=== PATIENT | male | born 1955 | race Caucasian/White ===

== ENCOUNTER → 2017-09-01 09:24 | Outpatient (CLI) | payer OTHER, SELFPAY ==
--- NOTE | 2017-09-01 | DI.MRI.S_ITS ---
PROCEDURE: MR LUMBAR SPINE WO CON INDICATIONS: LUMBAR PAIN TECHNIQUE: Noncontrast sagittal T1 spin echo and T2 fast echo, sagittal STIR, axial T1 and T2 fast spin echo through the lumbar spine. In cases with scoliosis, additional coronal T2 fast spin echo may be performed. COMPARISON: None. FINDINGS: Image quality: Excellent. Alignment and Curvature: There is normal bony alignment. Bone Marrow: Marrow is of normal overall signal. No acute vertebral body compression fractures. Spinal Cord: Conus medullaris terminates at the L1 level. Visualized cord demonstrates normal signal and size. Paraspinous Soft Tissues: No paravertebral masses. L1-L2: Minimal broad-based posterior disc bulge and bilateral facet arthropathy. No definite canal stenosis. No foraminal narrowing. L2-L3: Posterior annular fissure and broad-based posterior disc bulge. Superimposed minimal left paracentral protrusion. Bilateral facet arthropathy. Mild canal narrowing, left slightly greater than right. No foraminal stenosis. L3-L4: Bilateral facet arthropathy. Minimal canal narrowing mild left and no definite right foraminal stenoses. L4-L5: Posterior annular fissure and broad-based posterior disc bulge. Bilateral facet arthropathy. Prominent dorsal epidural lipomatosis. Moderate canal narrowing. Mild bilateral foraminal stenoses L5-S1: Mild broad-based posterior disc bulge and mild facet arthropathy. No definite canal stenosis. No foraminal narrowing. IMPRESSION: Multilevel lumbar disc degeneration and facet arthropathy. Mild L2-L3 and moderate L4-L5 canal narrowing as detailed above. Low-grade, bilateral foraminal stenoses as detailed above the spinal. Dictated by: Crescencio Thomson M.D. on 09/01/2017 at 10:30 Approved by: Crescencio Thomson M.D. on 09/01/2017 at 10:37
== END ==
PROVIDERS: PCP Internal Medicine; Visit Provider Orthopaedic Surgery Orthopaedic Surgery of the Spine
DX: M51.36 Other intervertebral disc degeneration, lumbar region (principal); M48.061 Spinal stenosis, lumbar region without neurogenic claudication; M47.816 Spondylosis without myelopathy or radiculopathy, lumbar region; M54.5 Low back pain
CPT/HCPCS: 72148

== ENCOUNTER → 2018-02-09 13:56 | Outpatient (CLI) | payer OTHER, SELFPAY ==
--- NOTE | 2018-02-09 | DI.ECHO.S_ITS ---
[place] [facility]---------+ [facility] +---------+ : : [address] : : : : [id number] : : : : Phone: [phone]+ Echocardiogram Report + + :Name: DC MANNING I Study Date: 02/09/2018 Height: 72 in : :[facility] Exam Location: [facility] Weight: 246 lb : : Gender: Male BSA: 2.3 m2 : :: 1955 Age: 62 yrs BP: 114/70 mmHg: :Reason For Study: AFIB : : Performed By: Andi Padilla : :Referring: JOSE DE JESUS RIOS : + + Interpretation Summary 1) Normal left ventricular thickness, size, wall motion, and systolic function (EF 60-65%). 2) Normal right ventricular size and function. 3) Both atria are moderately dilated. 4) No significant valvular abnormalities. 5) No prior Echo available for comparison. Procedure: A two-dimensional transthoracic echocardiogram with color flow and Doppler was performed. The study quality was technically good. There is no prior echocardiogram noted for this patient. The patient was in atrial fibrillation with rapid ventricular response during the exam with a heart rate exceeding 100 bpm. The patient had a heart rate of 89-134 beats per minute. Left Ventricle: The left ventricle is normal in size. There is normal left ventricular wall thickness. The ejection fraction is estimated to be 60-65%. Left ventricular systolic function is normal. There are no focal wall motion abnormalities. Right Ventricle: The right ventricle is normal in size and function. Atria: Both atria are moderately dilated. The interatrial septum is intact with no evidence for an atrial septal defect. Mitral Valve: The mitral valve is normal in structure and function. There is trace mitral regurgitation. Aortic Valve: The aortic valve is trileaflet. The aortic valve opens well. No aortic regurgitation is present. Tricuspid Valve: The tricuspid valve is normal in structure and function. There is mild tricuspid regurgitation. The right ventricular systolic pressure is estimated to be at least 24 mmHg based on an estimated right atrial pressure of 3 mm Hg. Pulmonic Valve: The pulmonic valve is normal in structure and function. There is trace pulmonic regurgitation. Great Vessels: The aortic root is normal size. The ascending aorta is mildly enlarged. The pulmonary artery is normal size. The IVC is of normal diameter and collapses greater than 50% with a sniff. This suggests a low right atrial pressure of 3 mm Hg. Pericardium/ Pleura There is no pericardial effusion. There is no pleural effusion. MMode/2D Measurements & Calculations LVIDd: 4.6 cm LVOT diam: 2.1 cm LVIDs: 2.9 cm Ao root diam: 3.2 cm FS: 38.0 % Aortic Jxn: 2.5 cm EPSS: 0.34 cm asc Aorta Diam: 3.5 cm IVSd: 0.93 cm Ao Arch Diam (Prox Trans): 2.5 cm LVPWd: 0.96 cm LV camacho. diameter/BSA (cm/m^2): 2.0 LV sys. diameter/BSA (cm/m^2): 1.2 LA dimension: 4.8 cm RA long axis: 5.1 cm LA A2 area: 27.2 cm2 RA area: 22.0 cm2 LA A4 area: 26.9 cm2 RA vol: 81.0 ml LA length (vol): 6.4 cm RA : 34.8 ml/m2 LA vol: 97.6 ml IVC diam: 1.7 cm LA vol index: 41.9 ml/m2 Doppler Measurements & Calculations Ao V2 max: 117.9 cm/sec LVOT Max Jm: 88.9 cm/sec Ao V2 mean: 82.9 cm/sec LV V1 max P.2 mmHg Ao max P.7 mmHg LV V1 VTI: 15.2 cm Ao mean P.1 mmHg JASON(I,D): 2.6 cm2 Ao V2 VTI: 19.4 cm JASON(V,D): 2.5 cm2 sev ratio: 0.79 JASON indexed to BSA (cm^2/m^2): 1.1 MV E max jm: 73.9 cm/sec TR max jm: 227.1 cm/sec MV A max jm: 0.53 cm/sec TR max P.6 mmHg MV E/A: 140.3 PA V2 max: 76.3 cm/sec Med Peak E' Jm: 9.4 cm/sec PA V2 mean: 54.1 cm/sec E/E' med: 7.9 PA mean P.3 mmHg Lat Peak E' Jm: 11.1 cm/sec PA pr(Accel): 41.6 mmHg E/E' lat: 6.7 PA Accel Time: 0.08 sec E/e' average: 7.3 MV dec time: 0.12 sec SV(LVOT): 51.0 ml Reading Physician:09:35 AM
== END ==
PROVIDERS: PCP Internal Medicine; Visit Provider Internal Medicine Cardiovascular Disease
DX: I48.91 Unspecified atrial fibrillation (principal)
CPT/HCPCS: 93306

== ENCOUNTER 2018-12-01 08:26 | Day surgery (SDC) | payer OTHER, SELFPAY ==
--- NOTE | 2018-12-01 | PATH_ITS ---
[facility] Accession Number: [id number] . 01 Material submitted: . body - POLYP AT 85 CM . 02 Diagnosis: Colon at 85 cm, Polyp: Hyperplastic polyp. MRV 12/02/2018 0948 Local . 02 Electronically signed: . Derik Hernandez MD, PhD, Pathologist NPI- [id number] . 01 Gross description: . POLYP AT 85 CM: Received in formalin are 4 fragment(s) of cortez, soft tissue measuring 0.4 x 0.3 x 0.2 cm to 0.1 x 0.1 x 0.1 cm submitted entirely in 1 cassette(s) /QBJ 12/01/20182023 Local . 02 Pathologist provided ICD-10: K63.5 . 02 CPT . 195380 Performed at: 01 [facility] [address] [place] [address], [place], [place] [id number] MD John Abdul MD Phone: [phone] Performed at: [facility] [address] [place], [place] [id number] MD Mahnaz Queen MD Phone: [phone]
[2018-12-01 09:34] VITALS: BP 153/89; PULSE 63; RESP 16; TEMP 36.4; BMI 32.5
[2018-12-01] MEDS: SODIUM CHLORIDE 0.9% 1,000 ML 84 ML IV (11:30)
--- NOTE | 2018-12-01 11:40 | PM.HP.1 ---
History of Present Illness History of Present Illness Date Patient Seen: 12/01/18 Time Patient Seen: 11:40 Chief complaint: [id number] Narrative: Patient is a gentleman for screening colonoscopy. Last exam 12 years ago. No history of polyps and no family history of colon cancer. Patient History Medical History History of cardioversion (Resolved) HTN (hypertension) (Chronic) Hyperlipemia (Chronic) Osteoarthritis (Chronic) Surgical History Hx of surgical amputation of finger (Resolved) Family History Mother Hypertension Father Heart disease Sister Diabetes mellitus Social History marital status: household members: spouse occupational status: employed Smoking Status: Never smoker alcohol intake: current substance use type: does not use Family & Social History Family History Mother Hypertension Father Heart disease Sister Diabetes mellitus Social History: household members spouse Tobacco & Substance use: Smoking Status Never smoker alcohol intake current Meds Home Medications and Allergies Home Medications Medication Instructions Recorded Confirmed Type apixaban 5 mg tablet 5 mg PO BID 09/04/18 09/04/18 History ezetimibe 10 mg tablet 10 mg PO DAILY 09/04/18 09/04/18 History hydrochlorothiazide 12.5 mg capsule 12.5 mg PO DAILY 09/04/18 09/04/18 History lisinopril 40 mg tablet 40 mg PO DAILY 09/04/18 09/04/18 History metoprolol succinate 100 mg 100 mg PO DAILY 09/04/18 12/01/18 History capsule sprinkle, ext. release 24 hr rosuvastatin 40 mg tablet 40 mg PO DAILY 09/04/18 12/01/18 History Allergies Allergy/AdvReac Type Severity Reaction Status Date / Time No Known Drug Allergies Allergy Unverified 12/01/18 09:39 Review of Systems Review of Systems Narrative: Stopped Eliquis yesterday at my request. Took his beta-magda. ROS Unobtainable: All systems reviewed & are unremarkable except as noted in HPI and below Exam Vital Signs (past 8 hours): - 12/01/18 09:34 Temperature 97.6 F Pulse Rate 63 Respiratory Rate 16 Blood Pressure 153/89 H Oxygen Delivery Method Room Air Narrative Exam Narrative: Pleasant cooperative patient no apparent distress. Lungs are clear to auscultation. No rales or rhonchi. Heart regular rate and rhythm no murmur gallop. Abdomen is soft nontender without mass. No obvious hernias. Patient is alert and oriented x3. Assessment & Plan Assessment & Plan narrative: The patient for a screening colonoscopy. I have discussed the procedure with them. Risks of bleeding, perforation which would necessitate major operation, failure to find remove all lesions, the potential tattoo were all discussed. All questions were answered. They wished to proceed.
--- NOTE | 2018-12-01 11:41 | PM.PREOP ---
Pre-operative Note Interval Note History & Physical reviewed/Exam performed by Physician: Yes Changes to H&P: No ASA Class (for procedural sedation): III
[2018-12-01] MEDS: MIDAZOLAM 5 MG/5 ML VIAL IV (12:12)
--- NOTE | 2018-12-01 12:12 | PM.OP.ENDO ---
Operative Date/Time/Diagnoses Date of procedure: 12/01/18 Time of procedure: 12:12 Pre-op diagnosis: Screening exam. Last exam 12 years ago Post-op diagnosis: other (Diverticulosis sigmoid and descending colon. One small polyp) Procedure & Clinicians Study performed: Colonoscopy with cold biopsy Same procedure as scheduled: Yes Indications: Screening Surgeon: Yoni Aburto Procedure Notes SCOAP/Timeout: Performed Procedure in detail: The patient was placed in the left lateral decubitus position and underwent IV sedation directed by the surgeon consisting of fentanyl and Versed. Digital exam was unremarkable. I could feel no masses in his distal prostate.. The scope was inserted and advanced through the rectum into the sigmoid, descending, transverse, and ascending colon. Patient was noted to have fairly large diverticuli that were numerous in the sigmoid and descending colon.. The cecum was reached identified by the ileocecal valve. The scope was gradually brought out. One Polyp was found at 85 cm from the anal verge. The scope ultimately was retroflexed in the rectum. The appearance was normal. The scope was removed and the patient tolerated the procedure well. Prep was good Scope withdrawal time: 10.5 minutes Sedation minutes: 23 Findings: diverticulosis (Sigmoid) and polyp (One small) Specimen(s): other (Polyp) Complications: none Post-procedure Recommendations: Colonscopy in 5 years (If the polyp is not neoplastic(adenomatous), 10 years) Follow up: as needed Disposition: PACU
[2018-12-01] MEDS: fentaNYL 250 MCG/5 ML INJ IV (12:13)
[2018-12-01 12:18] VITALS: BP 120/90; PULSE 61; RESP 14; TEMP 36.9; O2SAT 97
[2018-12-01 12:22] VITALS: BP 122/88; PULSE 65; RESP 12; TEMP 36.9; O2SAT 97
[2018-12-01 12:24] VITALS: BP 125/67; PULSE 62; RESP 17; O2SAT 98
[2018-12-01 12:43] VITALS: BP 120/71; PULSE 59; RESP 14; TEMP 36.4; O2SAT 99
--- NOTE | 2018-12-01 12:44 | SUR.PHASEII ---
present, feels ready to go home. VSS
== END 2018-12-01 12:58 | disposition home or self-care (01) ==
PROVIDERS: PCP Internal Medicine; Visit Provider Specialist
PROC: 0DJD8ZZ Inspection of Lower Intestinal Tract, Via Natural or Artificial Opening Endoscopic (ICD-10-PCS; CPT 45378; principal; 2018-12-01 09:45)
DX: Z12.11 Encounter for screening for malignant neoplasm of colon (principal); I10 Essential (primary) hypertension; K57.30 Diverticulosis of large intestine without perforation or abscess without bleeding; D12.4 Benign neoplasm of descending colon
CPT/HCPCS: 45380; 99152; J2250; J3010

== ENCOUNTER → 2020-06-12 11:39 | Outpatient (CLI) | payer OTHER, SELFPAY ==
[2020-06-12 12:08] LABS: Bacteria Urine None Seen; RBC Urine None Seen (0-5/HPF); WBC Urine None Seen (0-5/HPF)
[2020-06-12 13:04] LABS: Add Manual Diff / Slide Review NO; Basophils Absolute Auto 100 /uL (0-100); Basophils Percent Auto 0.6 % (0-2); Eosinophils Absolute Auto 300 /uL (0-450); Eosinophils Percent Auto 3.4 % (2-4); Hematocrit 42.9 % (41-53); Hemoglobin 14.7 g/dL (13.5-17.5); Lymphocytes Absolute Auto 1900 /uL (1100-4500); Lymphocytes Percent Auto 23.1 % (25-40); Mean Corpuscular HGB Conc 34.2 % (30-36); Mean Corpuscular Hemoglobin 30.2 PG (26-34); Mean Corpuscular Volume 88.3 fL (80-100); Monocytes Absolute Auto 600 /uL (0-900); Monocytes Percent Auto 7.2 % (3-14); Neutrophils Absolute Auto 5300 /uL (1500-7000); Neutrophils Percent Auto 65.7 % (50-75); Platelet Count 221 X10^3/uL (150-400); Red Blood Cell Count 4.86 X10^6/uL (4.5-5.9); Red Cell Distribution Width 14.1 % (11.6-14.8); White Blood Cell Count 8.1 X10^3/uL (4.5-11.0)
[2020-06-12 13:06] LABS: Appearance Urine UA CLEAR; Bilirubin Urine UA NEGATIVE (NEGATIVE); Color Urine UA YELLOW; Glucose Urine UA NEGATIVE (Negative); Ketones Urine UA NEGATIVE (NEGATIVE); Leukocyte Esterase Urine UA NEGATIVE (NEGATIVE); Nitrite Urine UA NEGATIVE (Negative); Occult Blood Urine UA TRACE-INTACT (Negative); Protein Urine UA NEGATIVE (Negative); Urobilinogen Urine UA 0.2 E.U./dL (0.2); pH Urine UA 5.5 (4.5-8.0)
[2020-06-12 13:14] LABS: Hemoglobin A1C% w Est Avg Glu 5.5 % (4.0-6.0)
[2020-06-12 13:18] LABS: BUN Creatinine Ratio 19.7 (6-22); Blood Urea Nitrogen 15 mg/dL (9-20); Calcium 10.4 mg/dL (8.4-10.2); Carbon Dioxide 28 mmol/L (22-32); Chloride 102 mmol/L (98-107); Estimated Glomerular Filt Rate > 60.0 mL/min (>60); Glucose 95 mg/dL (80-110); HEMOLYSIS < 15 (0-50); Potassium 4.7 mmol/L (3.4-5.1); Sodium 139 mmol/L (137-145)
[2020-06-12 13:25] LABS: Culture Indicated Urine Cult Not Indicated
[2020-06-12 13:28] LABS: INR 1.2 (0.9-1.3); Prothrombin Time 13.7 SECONDS (10.1-12.7)
[2020-06-12 13:30] LABS: PTT Partial Thromboplastin Tim 45 SECONDS (26.4-36.2)
== END ==
PROVIDERS: PCP Internal Medicine; Referring Provider Orthopaedic Surgery; Visit Provider Orthopaedic Surgery
DX: Z01.818 Encounter for other preprocedural examination (principal); Z01.812 Encounter for preprocedural laboratory examination; R73.9 Hyperglycemia, unspecified; N39.0 Urinary tract infection, site not specified; Z51.81 Encounter for therapeutic drug level monitoring
CPT/HCPCS: 36415; 80048; 81001; 83036; 85025; 85610; 85730; 93005

== ENCOUNTER → 2020-07-24 09:19 | Outpatient (CLI) | payer OTHER, SELFPAY ==
[2020-07-24 14:05] LABS: COVID19 -Nasal RAPID Negative (Negative)
== END ==
PROVIDERS: PCP Internal Medicine; Visit Provider Physician Assistant
DX: Z01.812 Encounter for preprocedural laboratory examination (principal); Z20.822 Contact with and (suspected) exposure to COVID-19
CPT/HCPCS: 87635

== ENCOUNTER 2020-07-25 11:43 | Day surgery (SDC) | payer OTHER, SELFPAY ==
[2020-07-18 07:39] VITALS: BMI 27.8
[2020-07-25] VITALS (15 sets, daily range): BP systolic 114–171; BP diastolic 43–80; PULSE 50–78; RESP 14–18; TEMP 36.3–37; O2SAT 96–100; BMI 27.8
[2020-07-25] MEDS: LACTATED RINGERS 1,000 ML 125 ML IV ×2 (12:15→17:20)
[2020-07-25] MEDS: ACETAMINOPHEN 325 MG TABLET 975 MG PO (12:18)
[2020-07-25] MEDS: LACTATED RINGERS 1,000 ML 42 ML IV ×2 (12:19→15:17)
[2020-07-25] MEDS: VANCOMYCIN 1,000 MG/200 ML PIGGYBACK 200 MG IV (12:19)
[2020-07-25] MEDS: MELOXICAM 7.5 MG TABLET 15 MG PO (12:19)
--- NOTE | 2020-07-25 12:47 | P.OP_ITS ---
Operative Date/Time/Diagnoses Date of procedure: 07/25/20 Time of procedure: 12:58 Pre-op diagnosis: right hip OA Post-op diagnosis: same Procedure & Clinicians Procedure: Right total hip posterior approach Same procedure as scheduled: Yes Indications: The patient has had progressively worsening right hip pain with radiographic changes consistent with arthritis. Non-operative management has failed and the patient has requested total hip replacement. The risks, benefits and alternatives to surgery were discussed with the patient prior to proceeding. Risks discussed included, but were not limited to, failure to relieve pain, leg length discrepancy, dislocation, stiffness, infection, nerve damage, deep venous thrombosis, pulmonary embolism, stroke, coma, heart attack, permanent paralysis and , as well as the potential need for eventual revision of the prosthetic. Surgeon: Mya Cohen [employer] Sales Representative: Florin Ortiz Anesthesia Type: General and Spinal Operative Notes Findings: Severe right hip osteoarthritis, adequate stability Closure Type: primary Specimen(s): none sent Prosthetic devices, grafts, tissues, transplants, or devices: Cohen [employer] nephew anthology size 8 standard offset, R3 acetabulum 58 mm, neutral poly liner, 36+ 4 Oxinium head Applied: drain(s) Estimated Blood Loss (mL): 250 Blood products transfused: none Procedure in detail: The patient was seen in the pre-operative area, where the patient identified the right hip as the operative site and this was marked with my initials. The patient received pre-operative antibiotics and was taken to the operating room and placed on the operative table in the left lateral decubitus position after satisfactory anesthesia. A real time operator out was performed. The right leg was prepared from the ankle to the iliac crest with ChloroPrep in the usual fashion and draped through sterile drapes. The hip was approached through an approximately 20 cm incision centered over the greater trochanter and curving gently posteriorly as it went proximally. This was carried sharply to the fascia rm, which was divided and retracted with a self retaining retractor. The trochanteric bursa was excised with care being t aken to avoid the sciatic nerve, which was identified and protected throughout the case. The short external rotators were incised and the capsulomuscular flap was raised and tagged for later repair. The hip was dislocated, and a femoral neck osteotomy performed approximately 15 mm above the lesser trochanter. Retractors were placed around the femur. The canal was opened with a box cutting osteotome, followed by a T handled reamer and a lateralizing reamer. The chili pepper broach was then used, followed by sequential broaching until there was good stability of the broach in the femur. Retractors were placed to expose the acetabulum. The labrum and central soft tissues were removed. Reaming was performed initially going up in 2 mm increments, then 1 mm increments until good bite was obtained with an odd sized reamer. The cup 1 mm larger than the last reamer was then inserted using the appropriate anteversion guides. A trial neutral liner was placed. The broach was placed in the canal. A trial head and neck were then placed and the hip relocated and checked for leg length and stability. An intraoperative film confirmed the component position and no evidence of fracture. The patient was stable in the position of sleep, of squatting, and could be put through a range of motion with 45 degrees internal rotation without dislocation. At 90 degrees flexion, internal rotation to 70 ? was possible before dislocation. This was felt to be satisfactory and the appropriate components were opened, and the trials were removed. The acetabular liner was impacted into position. The final stem was then impacted into the prepared femoral canal. A brief Betadine soak was performed while trialing with head options. The hip was meticulously irrigated with normal saline. Finally the femoral head was impacted onto the stem. The acetabulum was cleared of all material and the hip relocated one final time. The capsulomuscular flap was then repaired to the greater trochanter though an awl hole using the tag sutures. The short external rotators were repaired with a nonabsorbable suture. A deep drain was placed and brought out anteriorly. The fascia rm was closed with Vicryl. The subcutaneous layer was closed with barbed sutures and SteriStrips. An Aquacel Ag dressing was applied and the patient was taken to recovery having tolerated the procedure well. Complications: none Post-operative Condition: stable Disposition: Acute Care Plan for aftercare: The patient will be maintained on a standard total hip replacement protocol with weight bearing as tolerated and posterior hip precautions. The patient will receive Aspirin and sequential compression devices for DVT prophylaxis. The patient will be discharged home when safe for the home environment.
--- NOTE | 2020-07-25 12:47 | PM.PREOP ---
Pre-operative Note COVID-19 COVID-19 status: Negative Interval Note History & Physical reviewed/Exam performed by Physician: Yes Changes to H&P: No
[2020-07-25] MEDS: CEFAZOLIN 1 GM VIAL 2 GM IV ×2 (13:40→22:00)
[2020-07-25] MEDS: TRANEXAMIC ACID 1,000 MG VIAL 1000 MG INJ ×2 (13:42→15:19)
--- NOTE | 2020-07-25 13:50 | SUR.OPER ---
Lateral on padded OR bed. Gel axillary roll. Arms secured on padded armboard with pillow supporting top arm. Padded hip positioner braces x4 - anterior and posterior chest and pelvis. Additional gel pad used anterior pelvis. Gel pad under bottom leg from knee to foot and secured with tape over sheet.
[2020-07-25] MEDS: BUPIVACAINE LIPOSOME 266 MG/20 ML VIAL INJ (13:58)
[2020-07-25] MEDS: SODIUM CHLORIDE IRRIG SOLUTION 250 ML, POVIDONE-IODINE SPONGE STICKS 1 APPLIC IRR (13:59)
[2020-07-25] MEDS: BUPIVACAINE 0.25% W/ EPI (PF) 10 ML VIAL 20 ML INJ (14:01)
--- NOTE | 2020-07-25 15:00 | DI.RAD.S_ITS ---
PROCEDURE: XR PELVIS 1-2V INDICATIONS: INNER OP TECHNIQUE: Intra-operative view of the pelvis and hip acquired. COMPARISON: None. FINDINGS: Bones: Intraoperative devices prior to placement of arthroplasty prostheses are in expected positions. No fractures or suspicious bony lesions. Soft tissues: Overlying surgical retractors are present, along with other intraoperative changes. IMPRESSION: Expected intraoperative localization of sizing devices for preparation of placement of final components of right total hip arthroplasty. Dictated by: Bronson Nolan M.D. on 07/25/2020 at 15:23 Approved by: Bronson Nolan M.D. on 07/25/2020 at 15:23
--- NOTE | 2020-07-25 16:00 | DI.RAD.S_ITS ---
PROCEDURE: XR HIP W PEL IF DONE RT 2V INDICATIONS: POST OP RIGHT HIP TECHNIQUE: AP pelvis and lateral view of the right hip acquired. COMPARISON: [facility], CR, XR PELVIS 1-2V, 07/25/2020, 14:31. [facility], CR, XR PELVIS WITH LATERAL HIP RIGHT, 06/08/2020, 11:22. FINDINGS: Bones: Patient is status post right hip arthroplasty, with hardware components in expected positions. The hip joint appears congruent. The visualized bony structures appear intact. Soft tissues: Overlying postoperative changes are noted. No suspicious soft tissue densities. IMPRESSION: Normal alignment after right total hip arthroplasty, expected postoperative appearance. Dictated by: Bronson Nolan M.D. on 07/25/2020 at 16:54 Approved by: Bronson Nolan M.D. on 07/25/2020 at 16:55
[2020-07-25] MEDS: METOPROLOL ER 25 MG TABLET PO (18:06)
[2020-07-25] MEDS: lisinopriL 20 MG TABLET PO (18:06)
[2020-07-25] MEDS: OXYCODONE IR 5 MG TABLET PO ×2 (18:49→23:56)
[2020-07-25] MEDS: ATORVASTATIN 20 MG TABLET 80 MG PO (20:23)
[2020-07-25] MEDS: ACETAMINOPHEN 325 MG TABLET 650 MG PO (20:23)
[2020-07-25] MEDS: CHOLECALCIFEROL (VITAMIN D3) 1,000 UNIT TABLET 2000 UNIT PO (20:23)
[2020-07-25] MEDS: DOCUSATE 100 MG CAPSULE PO (20:24)
--- NOTE | 2020-07-25 21:31 | PC.NURSE ---
Pt arrived to floor @1655 Alert/oriented. Dsg to right hip CDI Med @ 1840 w/ Oxy 5mg w/ relief. Hemavac in place/patent. Voided per urinal 700cc clear urine. IVF RFA LR @ 125cc/hr infusing via pump w/o incidence. Call light w/in reach, bed alarm on for pt safety. Continue w/plan of care.
[2020-07-26 00:03] VITALS: BP 140/63; PULSE 67; RESP 16; TEMP 36.6; O2SAT 97
[2020-07-26] MEDS: CEFAZOLIN 1 GM VIAL 2 GM IV (05:30)
[2020-07-26] MEDS: OXYCODONE IR 5 MG TABLET PO ×2 (05:37→12:01)
[2020-07-26 06:05] VITALS: BP 124/54; PULSE 65; RESP 16; TEMP 36.3; O2SAT 98
[2020-07-26 06:06] LABS: Hematocrit 37.5 % (41-53); Hemoglobin 12.7 g/dL (13.5-17.5)
[2020-07-26 07:55] VITALS: BP 133/71; PULSE 62; RESP 15; TEMP 36.4; O2SAT 96
[2020-07-26] MEDS: DOCUSATE 100 MG CAPSULE PO (08:38)
[2020-07-26] MEDS: ACETAMINOPHEN 325 MG TABLET 650 MG PO (08:38)
[2020-07-26] MEDS: FISH OIL 1,000 MG CAPSULE 1000 MG PO (08:38)
[2020-07-26] MEDS: EZETIMIBE 10 MG TABLET PO (08:38)
[2020-07-26] MEDS: CHOLECALCIFEROL (VITAMIN D3) 1,000 UNIT TABLET 2000 UNIT PO (08:39)
[2020-07-26] MEDS: hydroCHLOROthiazide 25 MG TABLET 12.5 MG PO (08:39)
[2020-07-26] MEDS: PSYLLIUM HUSK 1 PACKET PO (08:39)
[2020-07-26] MEDS: VIT C/E/ZN/COPPR/LUTEIN/ZEAXAN CAPSULE 1 CAP PO (09:05)
--- NOTE | 2020-07-26 09:20 | PT.IIE ---
Current Diagnoses Unilateral primary osteoarthritis, right hip (07/25/20) Surgery Performed Operation Date: 07/25/20 13:45 Actual Procedures p Total Hip Arthroplasty(Right) - Mya Cohen MD Surgical History (Last Reviewed 07/26/20 @ 10:37 by Florin Ortiz PA-C) Hx of detached retina repair (2019) Hx of surgical amputation of finger Hx of tonsillectomy Medical History (Last Reviewed 07/26/20 @ 10:37 by Florin Ortiz PA-C) A-fib History of cardioversion (~04/2018) HTN (hypertension) Hyperlipemia Nasal polyp, benign CORDELL on CPAP Osteoarthritis Seasonal allergies Physical Therapy Inpatient Evaluation/Re-Eval M1 PT/OT-IP Prior Functional Status Start: 07/26/20 11:49 Freq: NEEDED Status: Active Protocol: Document 07/26/20 09:20 AB (Rec: 07/26/20 11:59 AB [email or web address]) Medical Review Prior Functional Status Medical History Reviewed Yes Communication able to make needs known Mobility and Gait pt stated that he is independent with all mobilities and ambulation without AD Social History Household Members spouse Living Arrangements House Number of Floors (Floors) One Floor Number of Stairs To Enter/Railing? 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 M2 PT-IP Current Condition Start: 07/26/20 11:49 Freq: NEEDED Status: Active Protocol: Document 07/26/20 09:20 AB (Rec: 07/26/20 11:59 AB [email or web address]) Physical Therapy Current Condition Current Condition Evaluation Date 07/26/20 Treatment Diagnosis s/p R ERLIN posterior approach; difficulty in walking Onset Date 07/25/20 Precautions Posterior Hip Precautions No Hip Flexion > 90 degrees,No Hip Internal Rotation,No Hip Adduction Weight Bearing Status Weight Bearing Status Weight Bear as Tolerated Allowed Weight Bearing Amount (enter % RLE WBAT or #) (%) M3 PT-IP Subjective Start: 07/26/20 11:49 Freq: NEEDED Status: Active Protocol: Document 07/26/20 09:20 AB (Rec: 07/26/20 11:59 AB [email or web address]) Subjective Physical Therapy Visit Type Type Initial Evaluation Visit Start Time 09:20 Visit Stop Time 10:50 Total Visit Minutes 90 Number of DESIGN COORDINATOR Visits 0 Physical Therapy Visit Comments Patient Comments agreeable to do PT Therapy Pain Assessment Pain When Pain Assessed At Rest Pain Present Pain Present Pain Reported Location Right Hip Intensity 5 Scale Used Numeric (0 - 10) Description Sharp,Tender,Tightness Pain Behaviors Guarding Pain Management Techniques Apply Cold,Modification of Treatment,Re-positioning, Timing of Activity with Medications M4 PT-IP Mobility and Gait Start: 07/26/20 11:49 Freq: NEEDED Status: Active Protocol: Document 07/26/20 09:20 AB (Rec: 07/26/20 11:59 [id number]) PT-Bed Mobility Assessment Supine to Sit Supine to Sit Standby Assistance Sit to Supine Sit to Supine Standby Assistance PT-Transfer Assessment Sit to and From Stand Sit to and from Stand Contact Guard Assistance,1 Person Assistance,Use of Upper Extremities Equipment Transfer Assistive Device Gait Belt,Front Wheeled Walker Orthotic/Prosthetic Devices or Brace: No Transfers Transfer Technique ambulated using FWW Transfer Ability Level of Assist Contact Guard Assistance,1 Person Assistance,Use of Upper Extremities Comments Mobility Comments educated pt on R hip posterior precautions. completed heel slides prior to mobility. pt completed supine to sit SBA and was able to sit on EOB SBA . completed sit to stand x 2 reps CGA and cues for techniques. pt ambulated to the chair using FWW CGA and cues. pt agreed to do stairs. completed sit to stand from chair CGA and ambulated ~ 150 ft using FWW. PT educated and demonstrated to pt stair climbing. pt completed up/down stairs holding on to R rail with B hands CGA and cues ascending and completed with L rail descending. assisted pt back to his room and agreed to sit on chair. ambulated to the chair using FWW CGA. set up on chair. call light and table placed within reach. caregiver training set up ~ 1pm with spouse. informed nurse regarding pt's mobility and caregiver training for pm session. Gait Assessment Gait Gait Assistance Required: Contact Guard Assist,1 Person Assist Distance (Feet) 150 Able to Maintain Weight Bearing Status Yes During Gait Assistive Devices Assistive Device Gait Belt,Front Wheeled Walker Orthotic/Prosthetic Devices or Brace: No Gait Deviations General Gait Pattern Antalgic,Decreased Stride Length,Decreased Feet Clearance,Step-to Gait Factors Limiting Gait Function Factors Limiting Gait Function Decreased Activity Tolerance, Decreased Strength,Limited Range of Motion,Pain,Poor Balance,Poor Safety Awareness Stair Climbing Assessment Evaluation Level of Assist On Stairs Contact Guard Assistance,1 Person Assistance Devices Stair Climbing Assistive Devices Right Railing Technique/Endurance Stair Climbing Direction Ascend and Descend Stair Climbing Technique Step to Step Number of Steps Climbed 3 Query Text: Stair Climbing Set # Repetitions (reps) 3 PT-Balance Assessment Sitting Balance and Reactions Static Sitting Balance Ability Good Dynamic Sitting Balance Ability Good Standing Balance and Reactions Static Standing Balance Ability Fair Dynamic Standing Balance Ability Fair Device Used FWW M5 PT-IP Objective Assessments Start: 07/26/20 11:49 Freq: NEEDED Status: Active Protocol: Document 07/26/20 09:20 AB (Rec: 07/26/20 11:59 AB [email or web address]) Orientation Orientation/Cognition Level of Alertness Alert Orientation Name,Place,Situation Language Function Ability No Deficits Noted Safety Awareness Understands Safety Issues Memory Description Short Term Impaired Gross Range of Motion Lower Extremity ROM Assessment Within Functional Limits Strength Lower Extremity Strength Assessment Right Impaired Hip 3+/5 Knee 4-/5 Coordination Assessment Gross Coordination Gross Coordination WNL Sensation Assessment Sensation Gross Sensation WNL Muscle Tone Muscle Tone WNL Yes M6 PT-IP Treatment Start: 07/26/20 11:49 Freq: NEEDED Status: Active Protocol: Document 07/26/20 09:20 AB (Rec: 07/26/20 11:59 [email or web address]) Physical Therapy Treatment Exercises Exercises Heel Slides Education Education Provided Precautions,Weight Bearing Status,Post-Op Packet,Safety Other Treatments Other Treatment Performed educated on car transfers M7 PT-IP Assessment and Plan Start: 07/26/20 11:49 Freq: NEEDED Status: Active Protocol: Document 07/26/20 09:20 AB (Rec: 07/26/20 11:59 AB [id number]) PT Summary Assessment and Plan Potential Rehabilitation Potential Good Status of Condition at Evaluation Stable Summary Impairments Pain,Strength,Balance,Bed Mobility,Transfers,Gait, Activity Tolerance Assessment Summary pt requiring CGA with mobiltiy using FWW with occasional cues for hip precautions. caregiver training set up at ~ 1pm later today. pt plans to go home with spouse to assist him and has outpt PT set up. Goals Bed Mobility Goal Independent Transfer Goal Independent,Front Wheeled Walker Gait Goal Independent,Front Wheel Walker Gait Distance 200 Other Goals up/down 8 steps using R rail ascending SBA Days to Meet Goals 5 Frequency of Treatment Frequency Of Treatment Twice a Day Treatment Plan Physical Therapy Treatment Plan Bed Mobility Training,Transfer Training,Gait Training, Therapeutic Exercise,Balance Retraining,Post Op Education, Discharge Planning,Hot or Cold Pack,Neuromuscular Re-ed, Coordination Retraining,Manual Therapy Precautions Posterior Hip Precautions No Hip Flexion > 90 degrees,No Hip Internal Rotation,No Hip Adduction Recommendations To Nursing Amount of Assist Needed 1 Person Assist Discharge Recommendations PT Discharge Recommendations Home with Assistance, Outpatient PT Transportation Needs at Discharge Private Vehicle
--- NOTE | 2020-07-26 10:19 | CM.DANOTE ---
DCP: Case received, EMR reviewed and met with patient. Introduced self and role. Was able to obtain information from patient regarding his baseline activity status prior to his having surgery. DCP assessment completed with information currently available. Patient is a 64 year old male who admitted yesterday morning to the care of the orthopedic team. PCP: Dr. Kinsey. Payer: confirmed: [facility]. Patient came to the hospital via private vehicle for a surgical procedure. He had a total right hip arthroplasty. Patient has had history of chronic hip pain radiating to his groin secondary to having a history of right hip osteoarthritis. Met with patient in his room. He was sitting up in bed, pleasant. Patient is alert and oriented, and resides in [place] with his spouse, Talita. He has been independent at his baseline, drives, and uses no DME supplies. 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 He stated that he has worked for years at this [employer], and has traveled throughout the . He came up here to [place] from [place], where he lived and met his . He worked at his company in [place], from 1976-, then moved to this area. P: DCP to continue to follow. He will be working with P.T. Plan is for home when medically stable and cleared by P.T. Rani Chiu RN/Line Operator
--- NOTE | 2020-07-26 10:35 | PM.DS.1 ---
History of Present Illness History of Present Illness Date Patient Seen: 07/26/20 Time Patient Seen: 10:35 Chief complaint: OPB Narrative: Patient's pain is moderate. Denies fever or chills. No nausea or vomiting Discharge Providers Provider Discharge Date: 07/26/20 Primary care physician: Branden Kinsey MD Consults: 07/18/20 09:44 Consult to Anesthesiology Routine Comment: Consulting Provider: Anesthesiologist Reason for consultation: Surgeon requested re: Cardiac history Consult to Respiratory Therapy Evaluate & Treat Comment: Physician Instructions: Evaluate and treat 07/25/20 06:30 Consult to Anesthesiology Routine Comment: Consulting Provider: Anesthesiologist Reason for consultation: Regional block for post operative pain control 07/25/20 12:18 Consult to Respiratory Therapy Evaluate & Treat Comment: Physician Instructions: Evaluate and treat 07/25/20 15:12 Consult to Respiratory Therapy Evaluate & Treat Comment: CORDELL+CPAP, s/p ERLIN, duramorph spinal Physician Instructions: Evaluate and treat 07/25/20 16:37 Consult to Discharge Planning Routine Comment: Consult to Physical Therapy Evaluate & Treat Comment: Physician Instructions: post op ERLIN protocol Consult to Respiratory Therapy Evaluate & Treat Comment: Physician Instructions: Evaluate and treat Discharge provider: Florin Ortiz PA-C Summary Hospital Course Discharge Diagnosis: Right hip OA Hospital Course: [address] [id number] Note Patient: Elias Alcantar IMR#: [id number]: 4Acct:[id number]/Sex: 64 / M Date of Service: 07/25/20Provider: Mya Cohen MD Operative Date/Time/Diagnoses Date of procedure: 07/25/20 Time of procedure: 12:58 Pre-op diagnosis: right hip OA Post-op diagnosis: same Procedure & Clinicians Procedure: Right total hip posterior approach Same procedure as scheduled: Yes Indications: The patient has had progressively worsening right hip pain with radiographic changes consistent with arthritis. Non-operative management has failed and the patient has requested total hip replacement. The risks, benefits and alternatives to surgery were discussed with the patient prior to proceeding. Risks discussed included, but were not limited to, failure to relieve pain, leg length discrepancy, dislocation, stiffness, infection, nerve damage, deep venous thrombosis, pulmonary embolism, stroke, coma, heart attack, permanent paralysis and , as well as the potential need for eventual revision of the prosthetic. Surgeon: Mya Cohen Medical Research Associate: Florin Ortiz Anesthesia Type: General and Spinal Operative Notes Findings: Severe right hip osteoarthritis, adequate stability Closure Type: primary Specimen(s): none sent Prosthetic devices, grafts, tissues, transplants, or devices: Cohen and nephew anthology size 8 standard offset, R3 acetabulum 58 mm, neutral poly liner, 36+ 4 Oxinium head Applied: drain(s) Estimated Blood Loss (mL): 250 Blood products transfused: none Patient admitted to the hospital for right total hip arthroplasty, posterior approach. Patient consented to the same. Patient underwent right total hip arthroplasty yesterday and is back in his room recovering well as in stable condition. Patient will be discharged home today. Status at Discharge Cognitive/behavioral status at discharge: at baseline, oriented Functional status at discharge: uses cane/walker Overall status at discharge: patient is progressing back to baseline Time Spent with Patient Time spent: Less than 30 minutes Exam Vital Signs (past 8 hours): - 07/26/20 06:05 07/26/20 07:55 Temperature 97.3 F L 97.6 F Pulse Rate 65 62 Respiratory Rate 16 15 Blood Pressure 124/54 L 133/71 Pulse Oximetry 98 96 Oxygen Delivery Method Room Air Oxygen Flow Rate 0 Narrative Exam Narrative: 64-year-old male resting comfortably in bed in no apparent distress. Dressing is clean, dry and intact. Motor functions intact distal right lower extremity. Sensation grossly intact to light touch. Both legs are warm and dry. Objective Labs Result Diagrams: 07/26/20 05:55 Labs: Laboratory Results - last 24 hr 07/26/20 05:55 Hgb 12.7 L Hct 37.5 L PFSH Medical History A-fib History of cardioversion (~04/2018) HTN (hypertension) Hyperlipemia Nasal polyp, benign CORDELL on CPAP Osteoarthritis Seasonal allergies Surgical History Hx of detached retina repair (2019) Hx of surgical amputation of finger Hx of tonsillectomy Family History Mother Hypertension Father Heart disease Sister Diabetes mellitus Social History marital status: household members: spouse occupational status: employed Smoking Status: Former smoker alcohol intake: current substance use type: does not use Discharge Assessment & Plan Assessment and Plan Assessment: Patient progressing as expected status post right total hip arthroplasty, posterior approach. Plan of Treatment: Weightbearing as tolerated, posterior hip precautions. Discharge home today in stable condition. Discharge Plan Discharge Plan Patient Disposition: Home Discharge orders & Medications Discharge Orders: Discharge (Order); Ordered 07/26/20 Ordered By: Florin Ortiz Prescriptions: New acetaminophen 325 mg Tablet 650 mg PO TID Qty: 60 RF: 0 docusate sodium [DOK] 100 mg Capsule 100 mg PO BID Qty: 20 RF: 0 oxycodone 5 mg Tablet 5 mg PO Q3HR PRN (Reason: Pain, Moderate (4-6)) Qty: 60 RF: 0 Continued hydrochlorothiazide 12.5 mg capsule 12.5 mg PO DAILY RF: 0 ezetimibe 10 mg tablet 10 mg PO QAM RF: 0 rosuvastatin 40 mg tablet 40 mg PO QPM RF: 0 Eliquis 5 mg tablet 5 mg PO BID RF: 0 lisinopril 20 mg Tablet 20 mg PO QPM RF: 0 metoprolol succinate 25 mg Tablet Extended Release 24 Hr 25 mg PO QPM RF: 0 rrbkkdobkvut-rdtgtkuj-wjrlig Tablet 1 tab PO DAILY RF: 0 cholecalciferol (vitamin D3) [Vitamin D3] 50 mcg (2,000 unit) Capsule 50 mcg PO BID RF: 0 psyllium husk [Metamucil] 0.4 gram Capsule 0.4 g PO QPM RF: 0 MegaRed [place]-3 Krill Oil [phone] mg Capsule 1 cap PO DAILY RF: 0 Follow up/Referrals: Branden Kinsey MD [Primary Care Provider] - Mya Cohen MD [Physician] - (2 weeks) Diet/Activity/Treatments Diet: Diet as Tolerated Activity: Weight-bearing as tolerated, posterior hip precautions Cold/Heat Therapy: Apply ice to hip as needed Skin/Wound/Dressing Care Report to your healthcare provider any signs of infection, such as:: chills, fever, increased pain, unusual drainage and unusual redness Dressing: Keep dressing clean and dry Visit Report/Discharge Packet Instructions: DI for Hip Replacement Stand Alone Forms: Surgery Discharge Discharge Data Primary Care Provider: Branden Kinsey Attending Provider: Mya Cohen VTE Deep Vein Thrombosis/Pulmonary Embolism Present on Admission: No
[2020-07-26 11:49] VITALS: BP 98/57; RESP 16; TEMP 36.3; O2SAT 97
--- NOTE | 2020-07-26 13:31 | PT.IPTN ---
Current Diagnoses Unilateral primary osteoarthritis, right hip (07/25/20) Surgery Performed Operation Date: 07/25/20 13:45 Actual Procedures p Total Hip Arthroplasty(Right) - Mya Cohen MD Physical Therapy Treatment Note M2 PT-IP Current Condition Start: 07/26/20 11:49 Freq: NEEDED Status: Active Protocol: Document 07/26/20 09:20 AB (Rec: 07/26/20 11:59 AB [id number]) Physical Therapy Current Condition Current Condition Evaluation Date 07/26/20 Treatment Diagnosis s/p R ERLIN posterior approach; difficulty in walking Onset Date 07/25/20 Precautions Posterior Hip Precautions No Hip Flexion > 90 degrees,No Hip Internal Rotation,No Hip Adduction Weight Bearing Status Weight Bearing Status Weight Bear as Tolerated Allowed Weight Bearing Amount (enter % RLE WBAT or #) (%) M3 PT-IP Subjective Start: 07/26/20 11:49 Freq: NEEDED Status: Active Protocol: Document 07/26/20 13:01 SP (Rec: 07/26/20 14:09 SP [id number]) Subjective Physical Therapy Visit Type Type Treatment Note Visit Start Time 13:01 Visit Stop Time 13:31 Total Visit Minutes 30 Notes attended tx, donned gait belt and provided assist needed throughout tx. Number of CUSTOMER SERVICE PROFESSIONAL Visits 1 Physical Therapy Visit Comments Patient Comments agreeable to do PT Patient Goals Return home with spouse to assist as needed and attend outpt PT set up already. Therapy Pain Assessment Pain When Pain Assessed During Mobility Pain Present Pain Present Pain Reported Location Right Hip Intensity 5 Scale Used during mobility R hip Description Tender,Tightness,With Movement Pain Behaviors Facial Grimacing Pain Management Techniques Apply Cold,Re-positioning, Timing of Activity with Medications M4 PT-IP Mobility and Gait Start: 07/26/20 11:49 Freq: NEEDED Status: Active Protocol: Document 07/26/20 13:01 SP (Rec: 07/26/20 14:09 SP [id number]) PT-Bed Mobility Assessment Supine to Sit Supine to Sit Standby Assistance Sit to Supine Sit to Supine Standby Assistance PT-Transfer Assessment Sit to and From Stand Sit to and from Stand Standby Assistance,Use of Upper Extremities Equipment Transfer Assistive Device Gait Belt,Front Wheeled Walker Orthotic/Prosthetic Devices or Brace: No Transfers Transfer Destination Bed,Chair Transfer Technique ambulated using FWW Transfer Ability Level of Assist Standby Assistance,Use of Upper Extremities Comments Mobility Comments Completed scoot to EOChair, Sit>stand using BUE using FWW with RLE positioned out in front SBA with verbalizing his patterning for safety recall. Pt ambulated around end of bed using FWW SBA, completed stand>sit>supine with self RLE mobility onto bed, completed post op ex returned to sitting SBA, Sit>stand then ambulated to stairs using FWW, completed and around rest of nursing station approx 250 ft total SBA and returned to chair using BUE slow safe descent. Pt was seated in chair when done, call light and all needs in reach. in room before left. Gait Assessment Gait Gait Assistance Required: Standby Assistance Distance (Feet) 250 Able to Maintain Weight Bearing Status Yes During Gait Assistive Devices Assistive Device Gait Belt,Front Wheeled Walker Orthotic/Prosthetic Devices or Brace: No Gait Deviations General Gait Pattern Antalgic,Decreased Stride Length,Decreased Feet Clearance,Step-to Gait Factors Limiting Gait Function Factors Limiting Gait Function Decreased Activity Tolerance, Decreased Strength,Limited Range of Motion,Pain Comments Gait Comments Pt ambulated further distance using fWW SBA with occasional cuing for R knee flexion and level pelvis awareness and can perform step over step patterning gait with noted decreased hip elevation improvement as distance progressed. Stair Climbing Assessment Evaluation Level of Assist On Stairs Contact Guard Assistance Devices Stair Climbing Assistive Devices Right Railing Technique/Endurance Stair Climbing Direction Ascend and Descend Stair Climbing Technique Step to Step Number of Steps Climbed 3 Stair Climbing Set # Repetitions (reps) 2 Comments Stair Climbing Comments Completed ascend/descend 6 stairs ( stated only 5 stairs at home) step to proper patterning and use of RHR CGA via with good positioning after education. Cued for awareness of R knee flexion during ascend to step and noted decreased hip elevation recruitment. PT-Balance Assessment Sitting Balance and Reactions Static Sitting Balance Ability Normal Dynamic Sitting Balance Ability Normal Standing Balance and Reactions Static Standing Balance Ability Good Dynamic Standing Balance Ability Good Device Used FWW M5 PT-IP Objective Assessments Start: 07/26/20 11:49 Freq: NEEDED Status: Active Protocol: Document 07/26/20 09:20 AB (Rec: 07/26/20 11:59 AB [id number]) Orientation Orientation/Cognition Level of Alertness Alert Orientation Name,Place,Situation Language Function Ability No Deficits Noted Safety Awareness Understands Safety Issues Memory Description Short Term Impaired Gross Range of Motion Lower Extremity ROM Assessment Within Functional Limits Strength Lower Extremity Strength Assessment Right Impaired Hip 3+/5 Knee 4-/5 Coordination Assessment Gross Coordination Gross Coordination WNL Sensation Assessment Sensation Gross Sensation WNL Muscle Tone Muscle Tone WNL Yes M6 PT-IP Treatment Start: 07/26/20 11:49 Freq: NEEDED Status: Active Protocol: Document 07/26/20 13:01 SP (Rec: 07/26/20 14:09 SP [id number]) Physical Therapy Treatment Exercises Exercises Ankle Pumps,Gluteal Sets,Quad Sets,Heel Slides,Seated Knee Flexion/Extension Knee ROM Measurement 90 deg AROM RLE Education Education Provided Precautions,Weight Bearing Status,Post-Op Packet,Safety M7 PT-IP Assessment and Plan Start: 07/26/20 11:49 Freq: NEEDED Status: Active Protocol: Document 07/26/20 13:01 SP (Rec: 07/26/20 14:09 SP [id number]) PT Summary Assessment and Plan Potential Rehabilitation Potential Good Status of Condition at Evaluation Stable Summary Impairments Pain,Strength,Balance,Bed Mobility,Transfers,Gait, Activity Tolerance Progress Towards Goals Progressing Toward Goals,Slow Progress due to Pain Assessment Summary Pt completed all mobility using FWW SBA and stair mgt R HR CGA via support during caregiver training. Pt is ok to return home with to assist as needed when medically cleared. Pt is already set up with outpt therapy. Goals Bed Mobility Goal Independent Transfer Goal Independent,Front Wheeled Walker Gait Goal Independent,Front Wheel Walker Gait Distance 200 Other Goals up/down 5 steps using R rail ascending SBA Days to Meet Goals 5 Frequency of Treatment Frequency Of Treatment Twice a Day Treatment Plan Physical Therapy Treatment Plan Bed Mobility Training,Transfer Training,Gait Training, Therapeutic Exercise,Balance Retraining,Post Op Education, Discharge Planning,Hot or Cold Pack,Neuromuscular Re-ed, Coordination Retraining,Manual Therapy Other Recommendations and Next Treatment Pos op ex, gait further Focus distance usign FWW w/ cuing for trunk alignment decrease R hip elevation. Precautions Posterior Hip Precautions No Hip Flexion > 90 degrees,No Hip Internal Rotation,No Hip Adduction Other Precautions Good recall 3/3 R hip precautions and maintained during tx. Recommendations To Nursing Amount of Assist Needed Standby Assistance Discharge Recommendations PT Discharge Recommendations Home with Assistance, Outpatient PT Transportation Needs at Discharge Private Vehicle
--- NOTE | 2020-07-26 15:04 | PC.NURSE ---
Pt A& OX3,VSS afebrile on RA. Dressing C/D/I. Po intake good, + BS x4. Pt ambulating with PT this a.m. will be arriving for coal feeder operator training this afternoon. After lunch, OT working with patient ambulating in kim with . Pt reports pain manageable with PRN 5 mg oxycodone interchanging with prn tylenol bringing pain from 5/10 to 2/10. Hemovac drain dc'd with minimal bloody drainage <5 cc. IV dc'd. Patient verbalized understanding of medication, activity and follow up instructions. Received prescriptions and INTELLIGENCE OFFICER escorted him via w/c out to private car with and all of his belongings.
== END 2020-07-26 15:00 | disposition home or self-care (01) ==
LOC: OR 11:46 → AC 11:48
PROVIDERS: PCP Internal Medicine; Referring Provider Orthopaedic Surgery; Visit Provider Orthopaedic Surgery
PROC: 0SR90JZ Replacement of Right Hip Joint with Synthetic Substitute, Open Approach (ICD-10-PCS; CPT 27130; principal; 2020-07-25 13:45)
DX: M16.11 Unilateral primary osteoarthritis, right hip (principal); I48.91 Unspecified atrial fibrillation; I10 Essential (primary) hypertension; G47.33 Obstructive sleep apnea (adult) (pediatric); E78.5 Hyperlipidemia, unspecified
CPT/HCPCS: 27130; 36415; 72170; 73502; 85014; 85018; 97116; 97161; 97530; C1776; A9270; C9290; J0690; J1100; J2250; J2274; J2405; J2704; J3010